=== PATIENT | male | born 1960 | race Caucasian/White ===

== ENCOUNTER 2024-07-20 23:04 | Observation (INO) | payer BC, MEDICARE ==
--- NOTE | 2024-07-20 23:22 | ED ---
General Adult HPI - General Chief complaint: Chest Pain Stated complaint: Chest Pain Time Seen by Provider: 07/20/24 23:21 Source: patient Limitations: no limitations - History of Present Illness Initial comments: Ashok is a 64yo M with PMH of HTN, HLD, DM and previous abuse who is currently an everyday marijuana smoker. Patient is brought to the ER today from the floor where he was at bedside with his significant other. Patient developed some stabbing left-sided chest pain radiating to his back. Stated nausea or vomiting. Patient notes that he had a stress test a few weeks ago and has been called multiple times by his cardiology office advised that his results were ab normal and he needs to come back to the office however patient has been busy caring for his significant other who has terminal cancer and was actually plan for discharge home on hospice from our hospital tomorrow. - Related Data Allergies Allergy/AdvReac Type Severity Reaction Status Date / Time No Known Allergies Allergy Verified 07/20/24 23:14 Review of Systems ROS Statement: Those systems with pertinent positive or pertinent negative responses have been documented in the HPI. ROS Other: All systems not noted in ROS Statement are negative. Past Medical History Past Medical History: Asthma, COPD, Diabetes Mellitus, Hyperlipidemia, Hy pertension Past Surgical History: Orthopedic Surgery Past Psychological History: No Psychological Hx Reported Smoking Status: Current every day smoker Past Alcohol Use History: Occasional Past Drug Use History: Marijuana General Exam - General Exam Comments Initial Comments: Physical Exam GENERAL: Obese gentleman Patient is nontoxic and well-hydrated HENT: Normocephalic, Atraumatic. EYES: PERRL, EOMI PULMONARY: Unlabored respirations. No audible rales rhonchi or wheezing was noted. CARDIOVASCULAR: RRR ABDOMEN: Protuberant, nontender SKIN: Skin is clear with no lesions or rashes and otherwise unremarkable. : Deferred NEUROLOGIC: Patient is alert and oriented x3. Moving all extremities spontaneously MUSCULOSKELETAL: Normal extremities with adequate strength and full range of motion. No lower extremity swelling or edema. No calf tenderness. PSYCHIATRIC: Normal psychiatric evaluation. Limitations: no limitations Course Vital Signs 07/20/24 07/20/24 07/21/24 23:07 23:38 00:01 Temperature 98.4 F Pulse Rate 88 85 101 H Respiratory 24 24 18 Rate Blood Pressure 154/95 157/92 O2 Sat by Pulse 95 Oximetry 0907/21/24 07/21/24 00:09 00:14 00:17 Temperature Pulse Rate 90 96 93 Respiratory 18 18 17 Rate Blood Pressure 130/90 130/87 131/83 O2 Sat by Pulse Oximetry 07/21/24 00:55 Temperature Pulse Rate 73 Respiratory 16 Rate Blood Pressure 128/79 O2 Sat by Pulse 96 Oximetry EKG Findings - EKG Comments: EKG Findings:: EKG interpreted by me EKG obtained due to complaint of chest pain EKG obtained at 2311 is 90 rhythm is sinus normal axis, normal intervals ND 150 QRS [address] elevations depressions no evidence of ischemia or infarction. Medical Decision Making - Medical Decision Making Was pt. sent in by a medical professional or institution (, PA, REEL AND REWINDER OPERATOR, urgent care, hospital, or half-way...) When possible be specific @ -Brought by nursing staff from the third floor of our hospital Did you speak to anyone other than the patient for history (EMS, parent, family, police, friend...)? What history was obtained from this source @ -No Did you review nursing and triage notes (agree or disagree)? Why? @ -I reviewed and agree with nursing and triage notes Were old charts reviewed (outside hosp., previous admission, EMS record, old EKG, old radiological studies, urgent care reports/EKG's, half-way records)? Report findings @ -No old charts were reviewed Differential Diagnosis (chest pain, altered mental status, abdominal pain women, abdominal pain men, vaginal bleeding, weakness, fever, dyspnea, syncope, headache, dizziness, GI bleed, back pain, seizure, CVA, palpatations, mental health)? @ -Differential Chest Pain: Stable Angina, Unstable Angina, STEMI, NSTEMI Aortic Dissection, Pneumothorax, Musculoskeletal, Esophageal Spasm GERD, Cholecystitis, Pancreatitis, Zoster, this is not meant to be an all-inclusive list. EKG interpreted by me (3pts min.). @ -As above X-rays interpreted by me (1pt min.). @ -No widened mediastinum no pneumothorax CT interpreted by me (1pt min.). @ -None done U/S interpreted by me (1pt. min.). @ -None done What testing was considered but not performed or refused? (CT, X-rays, U/S, labs)? Why? @ -None What meds were considered but not given or refused? Why? @ -None Did you discuss the management of the patient with other professionals (professionals i.e. , PA, REEL AND REWINDER OPERATOR, lab, RT, psych nurse, social work instructor, drapery examiner, teacher, staff electronic warfare officer, catalytic case operator)? Give summary @ -No Was smoking cessation discussed for >3mins.? @ -No Was critical care preformed (if so, how long)? @ -No Were there social determinants of health that impacted care today? How? (Homelessness, low income, unemployed, alcoholism, drug addiction, transportation, low edu. Level, literacy, decrease access to med. care, fci, rehab)? @ -No Was there de-escalation of care discussed even if they declined (Discuss DNR or withdrawal of care, Hospice)? DNR status @ -No What co-morbidities impacted this encounter? (DM, HTN, Smoking, COPD, CAD, Can cer, CVA, ARF, Chemo, Hep., AIDS, mental health diagnosis, sleep apnea, morbid obesity)? @ -Diabetes, hypertension, smoking, obesity Was patient admitted / discharged? Hospital course, mention meds given and route, prescriptions, significant lab abnormalities, going to OR and other pertinent info. @ -Admit Patient was seen and evaluated upon arrival history is obtained from the patient. Patient with history of CAD apparently recently failed a stress test has not had any follow-up with cardiology developed nonexertional chest pain. EKG was nonischemic patient was given aspirin and nitro and had resolution of his chest pain. Initial troponin negative patient is very high risk for ACS and requires further workup by cardiology. Patient agreeable to plan for admission Undiagnosed new problem with uncertain prognosis? @ -No Drug Therapy requiring intensive monitoring for toxicity (Heparin, Nitro, Insulin, Cardizem)? @ -No Were any procedures done? @ -No Diagnosis/symptom? @ -ACS Acute, or Chronic, or Acute on Chronic? @ -Default Uncomplicated (without systemic symptoms) or Complicated (systemic symptoms)? @ -Default Side effects of treatment? @ -No Exacerbation, Progression, or Severe Exacerbation? @ -No Poses a threat to life or bodily function? How? (Chest pain, USA, IA, pneumonia, PE, COPD, DKA, ARF, appy, cholecystitis, CVA, Diverticulitis, Homicidal, Suicidal, threat to staff... and all critical care pts) @ -Yes - Lab Data Result diagrams: 07/20/24 23:26 07/20/24 23:26 Lab Results 07/20/24 07/20/24 07/20/24 Range/Units 23:26 23:26 23:26 WBC 6.7 (3.8-10.6) k/uL RBC 4.72 (4.30-5.90) m/uL Hgb 13.2 (13.0-17.5) gm/dL Hct 41.8 (39.0-53.0) % MCV 88.4 (80.0-100.0) fL MCH 27.9 (25.0-35.0) pg MCHC 31.6 (31.0-37.0) g/dL RDW 14.0 (11.5-15.5) % Plt Count 249 (150-450) k/uL MPV 6.9 Neutrophils % 54 % Lymphocytes % 31 % Monocytes % 5 % Eosinophils % 5 % Basophils % 1 % Neutrophils # 3.6 (1.3-7.7) k/uL Lymphocytes # 2.1 (1.0-4.8) k/uL Monocytes # 0.3 (0-1.0) k/uL Eosinophils # 0.4 (0-0.7) k/uL Basophils # 0.1 (0-0.2) k/uL PT 10.4 (10.0-12.5) sec INR 0.9 (<1.2) APTT 22.7 (22.0-30.0) sec Sodium 134 L (137-145) mmol/L Potassium 4.8 (3.5-5.1) mmol/L Chloride 98 (98-107) mmol/L Carbon Dioxide 23 (22-30) mmol/L Anion Gap 13 mmol/L BUN 21 H (9-20) mg/dL Creatinine 0.98 (0.66-1.25) mg/dL Est GFR (CKD-EPI)AfAm >90 (>60 ml/min/1.73 sqM) Est GFR (CKD-EPI)NonAf 81 (>60 ml/min/1.73 sqM) Glucose 424 H (74-99) mg/dL POC Glucose (mg/dL) (70-110) mg/dL POC Glu Real Estate Development Manager ID Calcium 9.7 (8.4-10.2) mg/dL Magnesium 1.5 L (1.6-2.3) mg/dL Total Bilirubin 0.6 (0.2-1.3) mg/dL AST 48 (17-59) U/L ALT 63 H (4-49) U/L Alkaline Phosphatase 95 (38-126) U/L Troponin I (0.000-0.034) ng/mL NT-Pro-B Natriuret Pep 30 pg/mL Total Protein 7.3 (6.3-8.2) g/dL Albumin 4.6 (3.5-5.0) g/dL 07/20/24 07/21/24 07/21/24 Range/Units 23:26 01:21 02:20 WBC (3.8-10.6) k/uL RBC (4.30-5.90) m/uL Hgb (13.0-17.5) gm/dL Hct (39.0-53.0) % MCV (80.0-100.0) fL MCH (25.0-35.0) pg MCHC (31.0-37.0) g/dL RDW (11.5-15.5) % Plt Count (150-450) k/uL MPV Neutrophils % % Lymphocytes % % Monocytes % % Eosinophils % % Basophils % % Neutrophils # (1.3-7.7) k/uL Lymphocytes # (1.0-4.8) k/uL Monocytes # (0-1.0) k/uL Eosinophils # (0-0.7) k/uL Basophils # (0-0.2) k/uL PT (10.0-12.5) sec INR (<1.2) APTT (22.0-30.0) sec Sodium (137-145) mmol/L Potassium (3.5-5.1) mmol/L Chloride (98-107) mmol/L Carbon Dioxide (22-30) mmol/L Anion Gap mmol/L BUN (9-20) mg/dL Creatinine (0.66-1.25) mg/dL Est GFR (CKD-EPI)AfAm (>60 ml/min/1.73 sqM) Est GFR (CKD-EPI)NonAf (>60 ml/min/1.73 sqM) Glucose (74-99) mg/dL POC Glucose (mg/dL) 378 H (70-110) mg/dL POC Glu Real Estate Development Manager ID Kevin Caceres Calcium (8.4-10.2) mg/dL Magnesium (1.6-2.3) mg/dL Total Bilirubin (0.2-1.3) mg/dL AST (17-59) U/L ALT (4-49) U/L Alkaline Phosphatase (38-126) U/L Troponin I <0.012 <0.012 (0.000-0.034) ng/mL NT-Pro-B Natriuret Pep pg/mL Total Protein (6.3-8.2) g/dL Albumin (3.5-5.0) g/dL Disposition Clinical Impression: Unstable angina, Hyperglycemia due to type 2 diabetes mellitus Disposition: ADMITTED IP TO THIS HOSP Condition: Serious Is patient prescribed a controlled substance at d/c from ED?: No Referrals: Frantz Matthews MD [Primary Care Provider] - 1-2 days
[2024-07-20 23:39] LABS: Basophils # (A) 0.1 k/uL (0-0.2); Basophils % (A) 1 %; Eosinophils # (A) 0.4 k/uL (0-0.7); Eosinophils % (A) 5 %; HCT 41.8 % (39.0-53.0); HGB 13.2 gm/dL (13.0-17.5); Lymphocytes # (A) 2.1 k/uL (1.0-4.8); Lymphocytes % (A) 31 %; MCH 27.9 pg (25.0-35.0); MCHC 31.6 g/dL (31.0-37.0); MCV 88.4 fL (80.0-100.0); Mean Platelet Volume 6.9; Monocytes # (A) 0.3 k/uL (0-1.0); Monocytes % (A) 5 %; Neutrophils # (A) 3.6 k/uL (1.3-7.7); Neutrophils % (A) 54 %; Platelet Count 249 k/uL (150-450); RBC 4.72 m/uL (4.30-5.90); WBC 6.7 k/uL (3.8-10.6)
--- NOTE | 2024-07-20 23:48 | XR ---
EXAMINATION TYPE: XR chest 2V DATE OF EXAM: 07/20/2024 COMPARISON: NONE HISTORY: Chest pain TECHNIQUE: Frontal and lateral views of the chest are obtained. FINDINGS: There is no focal air space opacity, pleural effusion, or pneumothorax seen. Perhaps mild underlying emphysematous change. The cardiac silhouette size is upper limits of normal. The osseous structures are intact. IMPRESSION: No acute cardiopulmonary process. [facility], , 07/20/2024 11:46 PM
[2024-07-20 23:56] LABS: INR 0.9 (<1.2); Partial Thromboplastin Time 22.7 sec (22.0-30.0); Prothrombin Time 10.4 sec (10.0-12.5)
[2024-07-21] MEDS: NITROGLYCERIN SL TABS 0.4 MG TAB SUBLINGUAL STA (00:02)
[2024-07-21] MEDS: ASPIRIN 81 MG PO STA (00:03)
[2024-07-21 00:05] LABS: ALT 63 U/L (4-49); AST 48 U/L (17-59); African American GFR (CKD) >90 (>60 ml/min/1.73 sqM); Albumin 4.6 g/dL (3.5-5.0); Alkaline Phosphatase 95 U/L (38-126); Anion Gap 13 mmol/L; Blood Urea Nitrogen 21 mg/dL (9-20); Calcium 9.7 mg/dL (8.4-10.2); Carbon Dioxide 23 mmol/L (22-30); Chloride 98 mmol/L (98-107); Glucose 424 mg/dL (74-99); Magnesium 1.5 mg/dL (1.6-2.3); Non-African American GFR(CKD) 81 (>60 ml/min/1.73 sqM); Potassium 4.8 mmol/L (3.5-5.1); Sodium 134 mmol/L (137-145); Total Bilirubin 0.6 mg/dL (0.2-1.3); Total Protein 7.3 g/dL (6.3-8.2)
[2024-07-21 00:13] LABS: NT-Pro-B-Type Natriuretic Pept 30 pg/mL
[2024-07-21 01:23] LABS: Glucose,Whole Blood 378 mg/dL (70-110)
[2024-07-21] MEDS: MAGNESIUM SULFATE-D5W PMX 1 GM in DEXTROSE/WATER 1 100ML.BAG IVPB SCH (01:26)
[2024-07-21] MEDS: INSULIN REGULAR 100 UNIT/ML VIAL (IM/SQ) SQ ONE (01:26)
[2024-07-21] MEDS ORDERED: HEPARIN SODIUM 1,000 UN/ML (10ML VL) IV PRN (02:38)
[2024-07-21] MEDS ORDERED: NITROGLYCERIN SL TABS 0.4 MG TAB SUBLINGUAL PRN ×2 (02:51→08:48)
[2024-07-21] MEDS: HEPARIN SOD,PORK IN 0.45% NACL 25,000 UNIT in 0.45% NACL 1 250ML.BAG IV SCH (03:24)
[2024-07-21] MEDS: HEPARIN SODIUM 1,000 UN/ML (10ML VL) IV ONE (03:27)
[2024-07-21] MEDS ORDERED: DEXTROSE 50% SYRINGE 50 ML IVP PRN ×3 (04:12→04:15)
[2024-07-21] MEDS ORDERED: IPRATROPIUM-ALBUTEROL 3 ML NEB INHALATION PRN (04:15)
--- NOTE | 2024-07-21 04:20 | P.HPIM ---
History of Present Illness H&P Date: 07/21/24 Chief Complaint: Chest pain 64-year-old male with diabetes mellitus, COPD, hypertension DONIS Patient coming in for evaluation due to sudden onset chest pain he was with his at the hospital bedside when suddenly started experiencing right posterior chest pain radiating to the front and across his chest 8 out of 10 in severity stabbing pain decided to come down to the ER for treatment and evaluation this was not associated with nausea vomiting shortness of breath dizziness lightheadedness Patient denies any fevers chills headache changes in vision or hearing denies any nausea vomiting abdominal pain or GI bleeding denies any changes in bowel or urinary habits Patient claims a few weeks ago he had a stress test but he has not discussed results with 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 He denies any history of blood clots Patient reports history of obstructive sleep apnea however he is always sleepy and cannot focus Patient denies tobacco smoking illicit drugs or heavy alcohol review of systems Pertinent positives as noted in HPI. All other systems were reviewed and are negative on exam Constitutional: No acute distress, conversant, pleasant Eyes: Anicteric sclerae, moist conjunctiva, Pupils equal round reactive to light ENMT: NC/AT Oropharynx clear, no erythema, or exudates Neck: Supple, no masses, or JVD No carotid bruits No thyromegaly Lungs: Clear to auscultation Clear to percussion Normal respiratory effort, no accessory muscle use Cardiovascular: Heart regular in rate and rhythm, No murmurs, gallops, or rubs No peripheral edema Abdominal: Soft Nontender, no guarding, rebound or rigidity Abdomen moving with respiration Normoactive bowel sounds Extremities: No digital cyanosis No clubbing Pedal pulses intact and symmetrical Radial pulses intact and symmetrical No calf tenderness Psychiatric: Alert and oriented to person, place and time Appropriate affect fair judgement Neuro Muscles Strength 5/5 in all 4 extremities Sensation to light touch grossly present throughout Cranial nerves II-XII grossly intact Past Medical History Past Medical History: Asthma, COPD, Diabetes Mellitus, Hyperlipidemia, Hypertension History of Any Multi-Drug Resistant Organisms: None Reported Past Surgical History: Orthopedic Surgery Past Anesthesia/Blood Transfusion Reactions: No Reported Reaction Past Psychological History: No Psychological Hx Reported Smoking Status: Current every day smoker Past Alcohol Use History: Occasional Past Drug Use History: Marijuana Medications and Allergies Allergies Allergy/AdvReac Type Severity Reaction Status Date / Time No Known Allergies Allergy Verified 07/20/24 23:14 Physical Exam Vitals: Vital Signs Temp Pulse Pulse Resp BP BP Pulse Ox 07/21/24 04:04 97.5 F L 65 16 155/95 93 L 07/21/24 03:30 72 16 125/80 96 07/21/24 00:55 73 16 128/79 96 07/21/24 00:17 93 17 131/83 07/21/24 00:14 96 18 130/87 07/21/24 00:09 90 18 130/90 07/21/24 00:01 101 H 18 157/92 07/20/24 23:38 85 24 07/20/24 23:07 98.4 F 88 24 154/95 95 Intake and Output 07/20/24 07/20/24 07/21/24 14:59 22:59 06:59 Intake Total 0 Balance 0 Intake: Oral 0 Other: # Voids 1 Weight 95.254 kg Results CBC & Chem 7: 07/20/24 23:26 07/20/24 23:26 Labs: Abnormal Lab Results - Last 24 Hours (Table) 07/20/24 07/21/24 Range/Units 23:26 01:21 Sodium 134 L (137-145) mmol/L BUN 21 H (9-20) mg/dL Glucose 424 H (74-99) mg/dL POC Glucose (mg/dL) 378 H (70-110) mg/dL Magnesium 1.5 L (1.6-2.3) mg/dL ALT 63 H (4-49) U/L Thrombosis Risk Factor Assmnt - Choose All That Apply Any of the Below Risk Factors Present?: Yes Each Factor Represents 1 point: Abnormal pulmonary function (COPD) Other Risk Factors: Yes Each Risk Factor Represents 2 Points: Age 61-74 years Thrombosis Risk Factor Assessment Total Risk Factor Score: 3 Thrombosis Risk Factor Assessment Level: Moderate Risk Assessment and Plan Assessment: 64-year-old male with COPD hypertension diabetes mellitus coming in for evaluation of sudden onset chest pain that happened while he was at the hospital at bedside with his getting ready to take her to hospice I discussed case with ED doctor and accepted the admission for atypical chest pain rule out ACS Admitted for chest pain rule out ACS Start statin tomorrow Aspirin 81 mg daily Cardiology consult Troponin negative EKG no acute ST changes White count 6.7 unremarkable hemoglobin 15.2 unremarkable Patient claims she had abnormal stress test about 3 weeks ago but did not receive official results from cardiology team ( Heparin drip was initiated in the ED Diabetes mellitus Insulin sliding scale COPD Continue with DuoNebs as needed for shortness of breath COPD BiPAP ordered 10/07 Full code DVT prophylaxis heparin drip
[2024-07-21 05:45] LABS: Glucose,Whole Blood 244 mg/dL (70-110)
[2024-07-21] MEDS: INSULIN ASPART (NovoLOG) 100 UNIT/ML VIAL SQ SCH (06:07)
[2024-07-21] MEDS ORDERED: ALPRAZolam 0.5 MG TAB PO PRN (08:48)
[2024-07-21] MEDS ORDERED: ALPRAZolam 0.25 MG TAB PO PRN (08:48)
[2024-07-21] MEDS: ASPIRIN 325 MG TAB PO STA (09:01)
[2024-07-21] MEDS: ATORVASTATIN 80 MG TAB PO STA (09:01)
[2024-07-21] MEDS: SODIUM CHLORIDE 0.9% 1,000 ML IV ONE (10:32)
[2024-07-21] MEDS: HEPARIN SODIUM,PORCINE 10,000 UNIT in SODIUM CHLORIDE 0.9% 1,000 ML IRRIGATION PRN (10:33)
[2024-07-21] MEDS: HEPARIN SODIUM,PORCINE (1 ML) 2,500 UNIT in SODIUM CHLORIDE 0.9% 250 ML IRRIGATION PRN (10:33)
[2024-07-21] MEDS: MIDAZOLAM 2 MG/2 ML VIAL IVP ONE (10:39)
[2024-07-21] MEDS: LIDOCAINE 1% INJ 10MG/ML (20 ML MDV) SQ ONE (10:39)
[2024-07-21] MEDS: fentaNYL (PF) 50 MCG/ML 2 ML AMP IVP ONE (10:39)
[2024-07-21] MEDS: VERAPAMIL SYRINGE (5 MG/10 ML) INTRAARTER ONE (10:42)
[2024-07-21] MEDS: HEPARIN SODIUM 1,000 UN/ML (10ML VL) IVP ONE (10:47)
[2024-07-21] MEDS: IOPAMIDOL-370 200ML BTL INJ ONE (10:57)
--- NOTE | 2024-07-21 11:14 | P.CARDCATH ---
Date of Procedure: 07/21/24 Description of Procedure: DIAGNOSTIC CORONARY ANGIOGRAPHY and LEFT HEART CATH REPORT PROCEDURES PERFORMED: Left heart catheterization Selective coronary angiography Moderate conscious sedation 20 mins [Ultrasound assisted] Right radial access INDICATION: Unstable angina. Abnormal nuclear stress test 64-year-old admitted to the hospital because of substernal chest pain symptoms. Because of his risk factors and abnormal nuclear stress test cardiology team requested me to perform a heart catheterization on this patient. CONSENT: I have explained the procedural steps of above-mentioned procedures in layman's terms to the patient. I discussed the risks (including but not limited to stroke, emergent vascular or cardiac surgery or ), benefits and alternative therapies for the above-mentioned procedure. I discussed the risks of sedation/analgesia and blood product administration (if indicated). The patient has indicated understanding and acceptance of these risks. Conscious Sedation: Patient's ECG, heart rate, blood pressure, pulse oximetry were monitored throughout the duration of procedure under my direct supervision. [2] mg Versed and [50] mcg Fentanyl were used for induction of moderate conscious sedation. Total duration of moderate concious sedation 20 minutes. PROCEDURE: After explaining the risks, benefits and alternatives of the above mentioned procedures in detail to the patient, informed consent was obtained. Patient was taken to the catheterization lab, prepped and draped in usual sterile fashion using universal precuations. Ultrasound was used to identify the radial artery. 1% lidocaine was infiltrated over the right radial artery. A 6-Portuguese sheath was placed and secured in the right radial artery using modified Seldinger technique. The sheath was flushed and 5 mg verapamil was administered intra-arterially. J tipped wire was advanced under fluoroscopic guidance. Once the wire tip reached aortic root 6000 units of IV heparin was given. Over the wire JR4 diagnostic catheter was advanced. The wire in place the catheter was manipulated to cross the aortic valve and entered into LV under fluoroscopy guidance. The wire was removed and the catheter was flushed. LV pressures were obtained and pullback was performed under fluoroscopy. Catheter was manipulated to selectively engage the right coronary ostium. Right coronary angiography was performed in different angiographic projections. The JR4 diagnostic catheter was exchanged for a JL 3.5 diagnostic catheter over the J-wire. The wire was removed, catheter was flushed and manipulated under fluoroscopy to selectively engaged the left coronary ostium. Left coronary angioplasty was performed in different angiographic projections. Catheter was removed over the wire. Radial sheath was flushed. The right radial sheath was removed and a TR band was placed with excellent patent hemostasis was achieved. The patient tolerated the procedure well. Patient was transported back to the post catheterization holding area in stable condition. Angiographic images were reviewed in detail. HEMODYNAMICS: Aortic Pressure: 120/80 mmHg. LV pressure: 110/5 mmHg. LVEDP 10 mmHg. There was a gradient of 10 mmHg across aortic valve SELECTIVE CORONARY ARTERIOGRAPHY: LEFT MAIN: The left main is short and large caliber vessel. Ostial left main appears to have 10 to 20% calcific narrowing. It bifurcates into the LAD and circumflex. Left main appears angiographically normal. LEFT ANTERIOR DESCENDING CORONARY ARTERY: LAD is a large caliber vessel which wraps around to the apex. Proximal LAD appears angiographically normal. Mid LAD appears angiographically normal. Distal LAD appears angiographically normal. It gives rise to 2 medium size diagonal branches appears angiographically normal LEFT CIRCUMFLEX CORONARY ARTERY: It is nondominant vessel. Left circumflex is a moderate caliber vessel. It appears angiographically normal. It gives rise to a high OM1 and OM 2 branches which are moderate caliber and have mild luminal irregularities and are otherwise patent. After giving OM 2 LCx becomes a small AV groove branch which distally gives a small OM 3 and OM 4 branches. They are angiographically patent. RIGHT CORONARY ARTERY: Dominant vessel. The right coronary artery is a large caliber vessel which gives PDA and PLV branch. It appears angiographically normal. IMPRESSION: 10 to 20% ostial left main disease. (Mild) Mild luminal irregularities otherwise Normal left sided filling pressures PLAN: For mild luminal irregularities I would recommend aggressive risk factor modification with weight loss. I would also recommend doing high intensity statin for this patient. 125 cc fluids for 4 hours Follow-up with primary rn stars in next 1 to 2 weeks Performing Physician Dom Modi MD, FACC, RPVI Thank you for allowing [facility] to participate in this patient's care. Feel free to reach out in case of any followup questions.
[2024-07-21] MEDS ORDERED: RX INFO: IV CONTRAST WAS GIVEN 1 EACH MISC MISCELLANE PRN (11:17)
[2024-07-21] MEDS: SODIUM CHLORIDE 0.9% 1,000 ML IV SCH (11:22)
[2024-07-21 12:27] VITALS: RESP 15; TEMP 97.4
[2024-07-21 12:55] LABS: Glucose,Whole Blood 171 mg/dL (70-110)
--- NOTE | 2024-07-21 14:12 | CA ---
Transthoracic Echo Report Name: Ashok Jin Age: 64 Gender: M : 1960 Exam Date: 07/21/2024 13:29 Exam Location: [facility] Ht (in): 65 Wt (lb): 210 Ordering Physician: Lance Ozuna MD ([id number]) Attending/Referring Phys: Small Business Representative Sandrita Lopez, ENRIQUE Procedure CPT: Indications: Typical angina with exertion, abnormal stress test Cardiac Hx: Cath Technical Quality: Fair Contrast 1: Definity Total Dose (mL): 2 Contrast 2: Total Dose (mL): MEASUREMENTS (Male / Female) Normal Values 2D ECHO LV Diastolic Diameter PLAX 4.4 cm 4.2 - 5.9 / 3.9 - 5.3 cm LV Systolic Diameter PLAX 3.1 cm IVS Diastolic Thickness 1.3 cm 0.6 - 1.0 / 0.6 - 0.9 cm LVPW Diastolic Thickness 1.6 cm 0.6 - 1.0 / 0.6 - 0.9 cm LV Relative Wall Thickness 0.7 RV Internal Dim ED PLAX 1.4 cm LA Systolic Diameter LX 4.0 cm 3.0 - 4.0 / 2.7 - 3.8 cm M-MODE Aortic Root Diameter MM 3.6 cm LA Systolic Diameter MM 3.0 cm LA Ao Ratio MM 0.8 AV Cusp Separation MM 1.8 cm DOPPLER AV Peak Velocity 140.5 cm/s AV Peak Gradient 7.9 mmHg Mitral E Point Velocity 45.7 cm/s Mitral A Point Velocity 77.2 cm/s Mitral E to A Ratio 0.6 MV Deceleration Time 215.2 ms MV E' Velocity 6.0 cm/s Mitral E to MV E' Ratio 7.7 FINDINGS Left Ventricle Left ventricular ejection fraction is estimated at 60-65%. Mildly increased septal wall thickness. Normal left ventricular systolic function with no obvious regional wall motion abnormalities. Left ventricular cavity size normal. Right Ventricle Normal right ventricular size and function. Right ventricular systolic pressure within normal limits. Right Atrium Normal right atrial size. Left Atrium Normal left atrial size. Mitral Valve Structurally normal mitral valve. Trace mitral regurgitation. No mitral stenosis. Aortic Valve Trileaflet aortic valve. No aortic stenosis. No aortic regurgitation. Tricuspid Valve Structurally normal tricuspid valve. Trace tricuspid regurgitation. No tricuspid stenosis. Pulmonic Valve Structurally normal pulmonic valve. No pulmonic stenosis. Trace pulmonic regurgitation. Pericardium No pericardial or pleural effusion. Echo free space anterior to the right ventricle likely represents a fat pad. Aorta Aorta at upper limits of normal. CONCLUSIONS Diagnosis: Patient presented with exertional chest pain Abnormal Lexiscan Cardiolite stress test, diabetes type 2, hypertension Preserved LV size and function without any wall motion abnormalities Normal RV size and function Previewed by: Dr. Lance Ozuna MD (Electronically Signed) Final Date: 21 July 2024 14:10
[2024-07-21 15:50] VITALS: BP 156/89; PULSE 84
--- NOTE | 2024-07-21 17:06 | P.DS ---
Providers Date of admission: 07/21/24 02:51 Expected date of discharge: 07/21/24 Attending physician: Jameson Clark MD Consults: 07/21/24 02:51 Consult Physician Urgent Consulting Provider: [facility] Consult Reason/Comments: unstable angina Do you want consulting provider notified?: Yes, Notify in am Primary care physician: Frantz Matthews [facility] Course: Discharge Diagnosis: Chest pain, acute coronary event ruled out Hypertension Hyperlipidemia Insulin-dependent diabetes mellitus with hyperglycemia COPD with continued nicotine dependence. Hypomagnesemia, resolved Hospital Course: Patient is a very pleasant 64-year-old male with a past medical history of hypertension, hyperlipidemia, independent diabetes mellitus, and COPD with continued nicotine dependence. He presented to the emergency department with a chief complaint of chest pain. Patient was sitting at bedside with his significant other who they are currently putting on hospice when he began experiencing sudden onset pain and discomfort to his chest so he went down to the emergency department for evaluation because he had a stress test completed few weeks ago with positive results. On arrival to our facility, patient underwent evaluation in the emergency department. Vital signs upon arrival show blood pressure 154/95, heart rate 88, respiratory rate 24, temp 98.4 F, and SpO2 of 95% on room air. EKG completed showing normal sinus rhythm at 69 bpm with no noted T wave or ST abnormality showing no signs of acute ischemia upon personal review and interpretation. Chest x-ray negative for acute cardiopulmonary process. Labs completed and reviewed. CBC unremarkable. Coagulation profile normal findings. BMP showing mild hyponatremia with sodium of 134, prerenal azotemia with BUN of 21, and hyperglycemia with glucose of 424. Magnesium was low at 1.5. Liver profile showing elevated ALT of 63 otherwise normal findings. Troponin was negative at less than 0.012 with proBNP of 30. Patient was admitted under our services with consultation to cardiology. Magnesium was replaced with 2 g magnesium sulfate IVPB. Troponins trended overnight all negative at less than 0.012 x 4 draws. Echocardiogram was completed showing a preserved EF of 60 to 65% with mildly increased septal wall thickness and no significant valvular abnormalities. Patient was evaluated by technical support intern and taken for cardiac catheterization which revealed mild luminal irregularities with a mild 10 to 20% distal left main disease and normal filling pressures. Cardiology clearing patient from their perspective stating recommend continuing statin along with aggressive risk factor modifications including weight loss and smoking cessation. Patient currently free from any chest pain or complaints and is medically stable for discharge at this time. Patient to follow-up outpatient with PCP in 1 to 2 days and with technical support intern in 1 week. Physical exam: Patient seen and examined at bedside Vital signs reviewed and stable. General: Nontoxic, no distress and appears stated age. Derm: Skin warm and dry, normal coloration for ethnicity. Head: Atraumatic, normocephalic and symmetric. Eyes: EOM's intact, no lid lag, and anicteric sclera Mouth: no lip lesions, mucus membranes moist Cardiovascular: regular rate and rhythm with normal S1S2, no murmur, positive posterior tibial pulses bilaterally, and cap refill < 2 seconds. Lungs: Respirations even, regular, and unlabored on room air. Lungs CTA bilaterally, no rhonchi, no rales, no wheezing, and no accessory muscle usage. Abdominal: soft, nontender to palpation, no guarding, no appreciable organo megaly Ext: ROM intact. No gross muscle atrophy, no edema, no contractures Neuro: Speech clear, face symmetrical and CN II-XII grossly intact with no noted focal neuro deficits Psych: Alert and oriented to person, place, time, and situation. Appropriate and pleasant affect. A total of 35 minutes of time were spent preparing this complex discharge summary. Pt was discharged on 07/21/2024 at 5:03 PM. Patient was seen independently by Nurse Practitioner. This document was prepared using [employer] dictation software. Please allow for errors in framing machine tender while rare they do occur. I reviewed the documentation as provided by the JUSTINE above, who is the original author of this note. I agree with the documented assessment and plan, with the following changes: none Patient Condition at Discharge: Stable Plan - Discharge Summary New Discharge Prescriptions: New Pantoprazole [Protonix] 40 mg PO DAILY 30 Days #30 tab Continue HYDROcodone/APAP 5-325MG [Avis 5-325] 1 tab PO Q8H PRN PRN Reason: Pain amLODIPine [Norvasc] 10 mg PO DAILY Insulin Glargine,Hum.rec.anlog [Basaglar Kwikpen U-100] 40 - 45 unit SQ HS Aspirin 325 mg PO DAILY metFORMIN HCL 1,000 mg PO BID Cyclobenzaprine [Flexeril] 10 mg PO TID lisinopriL [Zestril] 10 mg PO DAILY Isosorbide Mononitrate ER [Imdur] 30 mg PO DAILY Gabapentin [Neurontin] 300 mg PO TID Diclofenac Sodium [Voltaren] 75 mg PO BID PRN PRN Reason: ARTHRITIS PAIN Loratadine [Claritin] 10 mg PO DAILY Atorvastatin Calcium [Lipitor] 40 mg PO HS Albuterol Sulfate [Albuterol Sulfate Hfa] 1 puff PO RT-Q4H PRN PRN Reason: Shortness Of Breath Discharge Medication List Albuterol Sulfate [Albuterol Sulfate Hfa] 1 puff PO RT-Q4H PRN 07/21/24 [History] Aspirin 325 mg PO DAILY 07/21/24 [History] Atorvastatin Calcium [Lipitor] 40 mg PO HS 07/21/24 [History] Cyclobenzaprine [Flexeril] 10 mg PO TID 07/21/24 [History] Diclofenac Sodium [Voltaren] 75 mg PO BID PRN 07/21/24 [History] Gabapentin [Neurontin] 300 mg PO TID 07/21/24 [History] HYDROcodone/APAP 5-325MG [Avis 5-325] 1 tab PO Q8H PRN 07/21/24 [History] Insulin Glargine,Hum.rec.anlog [Basaglar Kwikpen U-100] 40 - 45 unit SQ HS 07/21/24 [History] Isosorbide Mononitrate ER [Imdur] 30 mg PO DAILY 07/21/24 [History] Loratadine [Claritin] 10 mg PO DAILY 07/21/24 [History] Pantoprazole [Protonix] 40 mg PO DAILY 30 Days #30 tab 07/21/24 [Rx] amLODIPine [Norvasc] 10 mg PO DAILY 07/21/24 [History] lisinopriL [Zestril] 10 mg PO DAILY 07/21/24 [History] metFORMIN HCL 1,000 mg PO BID 07/21/24 [History] Follow up Appointment(s)/Referral(s): Dom Modi MD [Medical Doctor] - 1 Week Frantz Matthews MD [Primary Care Provider] - 1-2 days Patient Instructions/Handouts: Chest Pain (DC), Heart Catheterization (DC) Activity/Diet/Wound Care/Special Instructions: Follow up with Strip Winder in 1 week. Discharge Disposition: HOME SELF-CARE
--- NOTE | 2024-07-21 17:12 | P.CRDCN ---
History of Present Illness History of present illness: This is Dr. 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 His stress test is abnormal. I spoke to Dr. Modi and we will proceed with coronary angiography to delineate the epicardial coronary anatomy. At home he is on Zestril Imdur amlodipine atorvastatin aspirin Update: 2D echo and Doppler study shows preserved LV size and systolic function without any wall motion abnormalities. Normal RV size and function Left heart catheter revealed LVEDP of 10 mmHg. No significant gradient across the aortic valve 20% calcific ostial left main disease Mild LAD disease Mild circumflex and obtuse marginal disease Normal RCA Further recommendations would be continue statins and keep LDL closer to 50 mg/ dL Maximize DEBORAH inhibitors as an outpatient DC Imdur May discontinue aspirin 325 mg p.o. daily The patient will be discharged later today if hemodynamically stable and peripheral circulation of the right hand is normal. 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 The patient was sitting next to her and he started experiencing chest discomfort that went up to his jaw and to his back and he was nauseous and sweaty He has been experiencing the symptoms with exertion and while chopping wood or even sometimes at rest. 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 He is diabetic for 10 years history of hypertension He takes all his medications regularly When I examined him he was pain-free he was on IV heparin ROS: No fever chills or rigors, no cough, phlegm or expectoration, no nausea, vomiting or diarrhea, no hematuria, dysuria, no musculoskeletal complaints, no strokes or seizures, no skin lesions. EXAMINATION: Blood pressure 138/80 mmHg pulse rate in the 70s afebrile Normal heart sounds no murmurs no gallop Normal breath sounds air entry is reduced bilaterally Central obesity noted No lower extremity edema no bruits over the carotids REVIEW OF LABS, ECG & MEDICAL DATA Normal white count, normal hemoglobin Normal electrolytes Normal renal function Elevated glucose Cardiac enzymes x 3 normal NT proBNP normal at 30 Past Medical History Past Medical History: Asthma, COPD, Diabetes Mellitus, Hyperlipidemia, Hypertension History of Any Multi-Drug Resistant Organisms: None Reported Past Surgical History: Orthopedic Surgery Past Anesthesia/Blood Transfusion Reactions: No Reported Reaction Past Psychological History: No Psychological Hx Reported Smoking Status: Current every day smoker Past Alcohol Use History: Occasional Past Drug Use History: Marijuana Medications and Allergies Home Medications Medication Instructions Recorded Confirmed Type Albuterol Sulfate [Albuterol 1 puff PO RT-Q4H PRN 07/21/24 07/21/24 History Sulfate Hfa] Aspirin 325 mg PO DAILY 07/21/24 07/21/24 History Atorvastatin Calcium [Lipitor] 40 mg PO HS 07/21/24 07/21/24 History Cyclobenzaprine [Flexeril] 10 mg PO TID 07/21/24 07/21/24 History Diclofenac Sodium [Voltaren] 75 mg PO BID PRN 07/21/24 07/21/24 History Gabapentin [Neurontin] 300 mg PO TID 07/21/24 07/21/24 History HYDROcodone/APAP 5-325MG [[place] 1 tab PO Q8H PRN 07/21/24 07/21/24 History 5-325] Insulin Glargine,Hum.rec.anlog 40 - 45 unit SQ HS 07/21/24 07/21/24 History [Basaglar Kwikpen U-100] Isosorbide Mononitrate ER [Imdur] 30 mg PO DAILY 07/21/24 07/21/24 History Loratadine [Claritin] 10 mg PO DAILY 07/21/24 07/21/24 History Pantoprazole [Protonix] 40 mg PO DAILY 30 Days #30 tab 07/21/24 Rx amLODIPine [Norvasc] 10 mg PO DAILY 07/21/24 07/21/24 History lisinopriL [Zestril] 10 mg PO DAILY 07/21/24 07/21/24 History metFORMIN HCL 1,000 mg PO BID 07/21/24 07/21/24 History Allergies Allergy/AdvReac Type Severity Reaction Status Date / Time No Known Allergies Allergy Verified 07/21/24 10:59 Physical Exam Vitals: Vital Signs Temp Pulse Pulse Pulse Pulse Resp BP 07/21/24 15:15 84 07/21/24 14:13 93 07/21/24 13:13 76 07/21/24 12:43 78 07/21/24 12:13 74 07/21/24 11:58 66 07/21/24 11:43 70 07/21/24 11:28 77 07/21/24 11:13 97.4 F L 79 15 07/21/24 07:00 97.5 F L 73 17 07/21/24 04:04 97.5 F L 65 16 07/21/24 03:30 72 16 125/80 07/21/24 00:55 73 16 128/79 07/21/24 00:17 93 17 131/83 07/21/24 00:14 96 18 130/87 07/21/24 00:09 90 18 130/90 07/21/24 00:01 101 H 18 157/92 07/20/24 23:38 85 24 07/20/24 23:07 98.4 F 88 24 154/95 BP BP Pulse Ox 07/21/24 15:15 156/89 90 L 07/21/24 14:13 129/80 92 L 07/21/24 13:13 135/86 95 07/21/24 12:43 130/85 95 07/21/24 12:13 138/80 96 07/21/24 11:58 127/79 96 07/21/24 11:43 126/80 95 07/21/24 11:28 125/77 95 07/21/24 11:13 132/72 92 L 07/21/24 07:00 147/89 93 L 07/21/24 04:04 155/95 93 L 07/21/24 03:30 96 07/21/24 00:55 96 07/21/24 00:17 07/21/24 00:14 07/21/24 00:09 07/21/24 00:01 07/20/24 23:38 07/20/24 23:07 95 Intake and Output 07/21/24 07/21/24 07/21/24 06:59 14:59 22:59 Intake Total 0 181.167 Balance 0 181.167 Intake: IV 125 Intake, IV Titration 56.167 Amount Heparin Sod,Pork in 0.45% 56.167 NaCl 25,000 unit In 0.45 % NaCl 1 250ml.bag @ 10. 498 UNITS/KG/HR 10 mls/hr IV .Q24H [facility] Rx#: [id number] Oral 0 Other: Voiding Method Toilet Urinal # Voids 1 1 Weight 95.254 kg Results 07/20/24 23:26 07/20/24 23:26 Cardiac Enzymes 07/20/24 07/20/24 07/21/24 Range/Units 23:26 23:26 02:20 AST 48 (17-59) U/L Troponin I <0.012 <0.012 (0.000-0.034) ng/mL 07/21/24 07/21/24 Range/Units 03:53 06:55 AST (17-59) U/L Troponin I <0.012 <0.012 (0.000-0.034) ng/mL Coagulation 07/20/24 07/21/24 Range/Units 23:26 09: PT 10.4 (10.0-12.5) sec APTT 22.7 28.7 (22.0-30.0) sec CBC 07/20/24 Range/Units 23:26 WBC 6.7 (3.8-10.6) k/uL RBC 4.72 (4.30-5.90) m/uL Hgb 13.2 (13.0-17.5) gm/dL Hct 41.8 (39.0-53.0) % Plt Count 249 (150-450) k/uL Comprehensive Metabolic Panel 07/20/24 Range/Units 23:26 Sodium 134 L (137-145) mmol/L Potassium 4.8 (3.5-5.1) mmol/L Chloride 98 (98-107) mmol/L Carbon Dioxide 23 (22-30) mmol/L BUN 21 H (9-20) mg/dL Creatinine 0.98 (0.66-1.25) mg/dL Glucose 424 H (74-99) mg/dL Calcium 9.7 (8.4-10.2) mg/dL AST 48 (17-59) U/L ALT 63 H (4-49) U/L Alkaline Phosphatase 95 (38-126) U/L Total Protein 7.3 (6.3-8.2) g/dL Albumin 4.6 (3.5-5.0) g/dL Current Medications Generic Name Dose Route Start Last Admin Trade Name Freq PRN Reason Stop Dose Admin Albuterol/Ipratropium 3 ml 07/21/24 04:15 Ipratropium-Albuterol 3 Ml Neb INHALATION RT-QID PRN Shortness Of Breath Or Wheezing Alprazolam 0.25 mg 07/21/24 08:48 Alprazolam 0.25 Mg Tab PO Q6HR PRN Mild Anxiety Alprazolam 0.5 mg 07/21/24 08:48 Alprazolam 0.5 Mg Tab PO Q6HR PRN Moderate Anxiety Aspirin 325 mg 07/22/24 09:00 Aspirin 325 Mg Tab PO DAILY CLAUS Dextrose/Water 50 ml 07/21/24 04:12 Dextrose 50% Syringe 50 Ml IVP PER PROTOCOL PRN Hypoglycemia Protocol Dextrose/Water 25 ml 07/21/24 04:15 Dextrose 50% Syringe 50 Ml IVP PER PROTOCOL PRN Hypoglycemia Protocol Heparin Sodium (Porcine) 0 unit 07/21/24 02:38 Heparin Sodium 1,000 Un/Ml (10ml Vl) IV PER PROTOCOL PRN Low PTT Protocol Heparin Sodium/Sodium Chloride 250 mls @ 10 mls/hr 07/21/24 02:45 07/21/24 09:01 25,000 unit/ Sodium Chloride IV 0 units/kg/hr .Q24H CLAUS 0 mls/hr Titration Protocol 10.498 UNITS/KG/HR Heparin Sodium (Porcine) 10, 1,001 mls @ 999 mls/hr 07/22/24 07:00 07/21/24 10:33 000 unit/ Sodium Chloride IRRIGATION 07/22/24 23:00 25 mls ONCE PRN Administration INTRA-OP Heparin Sodium (Porcine) 2,500 250.5 mls @ 250 mls/hr 07/22/24 07:00 07/21/24 10:33 unit/ Sodium Chloride IRRIGATION 07/22/24 23:00 25 mls ONCE PRN Administration INTRA-OP Insulin Aspart 0 unit 07/21/24 07:30 07/21/24 13:03 Insulin Aspart (Novolog) 100 Unit/Ml Vial SQ 3 unit ACHS CLAUS Administration Protocol Miscellaneous Information 1 each 07/21/24 11:17 Rx Info: Iv Contrast Was Given 1 Each Misc MISCELLANE 07/23/24 11:17 DAILY PRN Per Protocol Nitroglycerin 0.4 mg 07/21/24 08:48 Nitroglycerin Sl Tabs 0.4 Mg Tab SUBLINGUAL Q5M PRN Chest Pain Intake and Output 07/21/24 07/21/24 07/21/24 06:59 14:59 22:59 Intake Total 0 181.167 Balance 0 181.167 Intake: IV 125 Intake, IV Titration 56.167 Amount Heparin Sod,Pork in 0.45% 56.167 NaCl 25,000 unit In 0.45 % NaCl 1 250ml.bag @ 10. 498 UNITS/KG/HR 10 mls/hr IV .Q24H [facility] Rx#: [id number] Oral 0 Other: Voiding Method Toilet Urinal # Voids 1 1 Weight 95.254 kg 07/20/24 23:26 07/20/24 23:26
[2024-07-22] MEDS ORDERED: ASPIRIN 325 MG TAB PO SCH (09:00)
== END 2024-07-21 17:39 | disposition home or self-care (01) ==
LOC: EC 23:04 → 6NMEDSUR 07-21 02:51
PROVIDERS: ADMIT Internal Medicine; ATTEND Internal Medicine
DX: R07.2 Precordial pain (principal); E11.65 Type 2 diabetes mellitus with hyperglycemia; E83.42 Hypomagnesemia; E87.1 Hypo-osmolality and hyponatremia; I25.10 Atherosclerotic heart disease of native coronary artery without angina pectoris; I10 Essential (primary) hypertension; E78.5 Hyperlipidemia, unspecified; F12.90 Cannabis use, unspecified, uncomplicated; G47.33 Obstructive sleep apnea (adult) (pediatric); J44.9 Chronic obstructive pulmonary disease, unspecified; R94.39 Abnormal result of other cardiovascular function study; R74.01 Elevation of levels of liver transaminase levels; R79.89 Other specified abnormal findings of blood chemistry; F17.210 Nicotine dependence, cigarettes, uncomplicated; E66.9 Obesity, unspecified; Z68.34 Body mass index [BMI] 34.0-34.9, adult; Z79.82 Long term (current) use of aspirin; Z79.84 Long term (current) use of oral hypoglycemic drugs; Z79.4 Long term (current) use of insulin; Z79.899 Other long term (current) drug therapy
CPT/HCPCS: 36415; 71046; 80053; 83735; 83880; 84484; 85025; 85610; 85730; 93005; 93306; 93458; 96365; 96366; 99285